=== PATIENT | male | born 1990 | race Caucasian/White ===

== ENCOUNTER 2017-05-03 09:55 | Emergency (ER) | payer OTHER ==
[~2017-05-03] VITALS: Ht 170.2 cm; Wt 67.1 kg
[2017-05-03 10:05] VITALS: TEMP 36.8; O2SAT 100; Ht 170.2 cm; Wt 67.1 kg
[2017-05-03] MEDS ORDERED: SODIUM CHLORIDE 0.9% 1000ML 2,000 ML IV STA (10:09)
[2017-05-03] MEDS ORDERED: DiphenhydrAMINE HCL 50 MG/ML VIAL IV STA (10:09)
[2017-05-03 10:33] LABS: BASO % 0.2 %; BASO ABS # 0.02 K/uL (0-0.2); COMPLETE YES; EOS % 0.7 %; HEMATOCRIT 50.1 % (42-52); IG% 0.3 %; LYMPH % 16.7 %; LYMPH ABS # 1.93 K/uL (1.2-3.4); MEAN CELL VOLUME 88.8 fL (80-100); MEAN CORPUSCULAR HEMOGLOBIN 31.6 pg (25-34); MEAN CORPUSCULAR HGB CONC 35.5 g/dl (32-36); MEAN PLATELET VOLUME 9.3 fL (7.4-10.4); MONO % 6.3 %; NEUT % 75.8 %; PLATELET COUNT 349 K/uL (130-400); RED BLOOD COUNT 5.64 M/uL (4.7-6.1); WHITE BLOOD COUNT 11.57 K/uL (4.8-10.8)
[2017-05-03 10:49] LABS: ALT/SGPT 21 U/L (12-78); AST/SGOT 17 U/L (15-37); BLOOD UREA NITROGEN 16 mg/dl (7-18); CALCIUM 9.2 mg/dl (8.5-10.1); CARBON DIOXIDE 24 mmol/L (21-32); CHLORIDE 102 mmol/L (98-107); GLUCOSE 142 mg/dl (70-99); POTASSIUM 3.9 mmol/L (3.5-5.1); SODIUM 134 mmol/L (136-145)
[2017-05-03 10:53] LABS: ALKALINE PHOSPHATASE 112 U/L (45-117)
[2017-05-03] MEDS ORDERED: ONDANSETRON INJ 2 MG/ML 2 ML VIAL IV STA (11:10)
[2017-05-03] MEDS ORDERED: DULO60CA44 PO (11:16)
[2017-05-03] MEDS ORDERED: GABA-113 PO (11:16)
[2017-05-03] MEDS ORDERED: BUSP15TA70 PO (11:16)
[2017-05-03] MEDS ORDERED: LORAZEPAM 2 MG/ML 1 ML VIAL IV STA (11:57)
[2017-05-03] MEDS ORDERED: OPTIRAY 320 IV PRN (12:00)
[2017-05-03] MEDS ORDERED: PROMETHAZINE HCL INJ 25 MG in SODIUM CHLORIDE 0.9% 50ML 50 ML IV STA (12:35)
--- NOTE | 2017-05-03 12:35 | DIAGNOSTIC IMAGING REPORT ---
CT SCAN OF THE ABDOMEN AND PELVIS WITH IV CONTRAST CLINICAL HISTORY: Syncope. Nausea. Generalized abdominal pain. COMPARISON STUDY: No priors. TECHNIQUE: Following the IV administration of 118 cc of Optiray 320, CT scan of the abdomen and pelvis is performed from the lung bases to the proximal femora. Images are reviewed in the axial, sagittal, and coronal planes. IV contrast was administered without complication. The examination is degraded by motion artifact. Automated dose control exposure was utilized. A dose lowering technique was utilized adhering to the principles of ALARA. CT DOSE: 287.98 mGy.cm FINDINGS: Lung bases: The heart is normal in size and without pericardial effusion. The lung bases are clear. Liver: The contrast-enhanced liver is normal in size, contour, and attenuation. There is no intrahepatic biliary ductal dilatation. The hepatic veins and portal veins are patent. Hepatic periportal edema is noted. Gallbladder: Unremarkable. Spleen: Normal in size and attenuation. Pancreas: Unremarkable. Adrenal glands: Unremarkable. Kidneys: The contrast enhanced kidneys are normal in size and without hydronephrosis. The kidneys enhance symmetrically. There is a retroaortic left renal vein. Abdominal vasculature: The abdominal aorta is normal in course and caliber. Bowel: The small bowel and colon are normal in course and caliber. The appendix is not clearly visualized. Peritoneum: There is no intraperitoneal free air or abdominal ascites. Lymphadenopathy: None. Pelvic viscera: The bladder, prostate, and seminal vesicles are normal as visualized. Skeletal structures: No lytic or blastic lesions are seen. IMPRESSION: 1. There are no acute infectious or inflammatory findings in the abdomen or pelvis noting a significantly motion compromised examination. 2. Hepatic periportal edema is identified and likely related to hydration status. Electronically signed by: Colin Bernardo M.D. 05/03/2017 12:34 PM Dictated Date/Time: 05/03/2017 12:28 PM
[2017-05-03] MEDS ORDERED: SODIUM CHLORIDE 0.9% 1000ML 1,000 ML IV STA (12:36)
--- NOTE | 2017-05-03 14:28 | EMERGENCY ROOM VISIT NOTE ---
History Report prepared by Yuko: Nikki Pearce Under the Supervision of: Dr. Tez Mehta M.D. First contact with patient: 10:02 Chief Complaint: DIZZY Stated Complaint: DIZZY/NAUSEA/SWEATING History of Present Illness The patient is a 26 year old male who presents to the Emergency Room with complaints of persistent vomiting starting this morning. He presents to the ED by EMS. The patient believes that he might have overexerted himself over the last couple of days and become dehydrated. The patient has been doing yard work outside in the sun over the past couple of days. He has overworked himself in the past before. This morning he started having nausea and vomiting. He then started having abdominal pain. The pain is all throughout his abdomen. He also reports dizziness and diaphoresis. He denies any LOC, headache, or neck pain. He admits to marijuana last night. He denies any alcohol use. He denies having history of stomach problems or any other medical problems. Source of History: patient Onset: this morning Position: other (global) Quality: other (vomiting) Timing: other (persistent) Associated Symptoms: + diaphoresis, + nausea, + abdominal pain, No LOC, No headache, No neck pain Note: Pt reports dizziness. Review of Systems See HPI for pertinent positives & negatives. A total of 10 systems reviewed and were otherwise negative. Past Medical & Surgical Medical Problems: (1) No chronic problems Family History No pertinent family history stated. Social History Drug Use: marijuana Marital Status: Current/Historical Medications Scheduled Buspirone Hcl (Buspar), 1 TAB PO QID Duloxetine Hcl (Cymbalta), 60 MG PO DAILY Gabapentin (Neurontin), 300 MG PO QID Allergies Coded Allergies: No Known Allergies (Unverified , 05/03/17) Physical Exam Vital Signs Date Time Temp Pulse Resp B/P (MAP) Pulse Ox O2 Delivery O2 Flow Rate FiO2 05/03/17 14:47 76 16 133/65 95 05/03/17 13:20 63 16 133/84 96 Room Air 05/03/17 13:19 73 05/03/17 11:27 52 16 139/91 100 Room Air 05/03/17 10:05 100 Room Air 05/03/17 10:05 50 05/03/17 10:05 36.8 53 24 137/95 100 Room Air Physical Exam GENERAL: Patient is uncomfortable appearing and in moderate distress, diaphoretic. HEENT: No acute trauma, normocephalic atraumatic, mucous membranes moist, no nasal congestion, no scleral icterus. NECK: No stridor, no adenopathy, no meningismus, trachea is midline. LUNGS: No dyspnea. Clear to auscultation and equal bilaterally. No wheeze, no rhonchi. HEART: Bradycardic rate and regular rhythm. No murmurs, rubs, gallops appreciated. ABDOMEN: Soft, nontender, bowel sounds positive, no masses appreciated, no peritonitis. BACK: No midline tenderness, no CVA tenderness EXTREMITIES: Normal motion all extremities, no cyanosis, no edema. NEUROLOGIC: Alert and oriented, no acute motor or sensory deficits, no focal weakness, cranial nerves grossly intact. SKIN: No rash, no jaundice, diaphoretic. Medical Decision & Procedures ER Provider Diagnostic Interpretation: Radiology results and stated below per my review and radiologist interpretation: CT SCAN OF THE ABDOMEN AND PELVIS WITH IV CONTRAST CLINICAL HISTORY: Syncope. Nausea. Generalized abdominal pain. COMPARISON STUDY: No priors. TECHNIQUE: Following the IV administration of 118 cc of Optiray 320, CT scan of the abdomen and pelvis is performed from the lung bases to the proximal femora. Images are reviewed in the axial, sagittal, and coronal planes. IV contrast was administered without complication. The examination is degraded by motion artifact. Automated dose control exposure was utilized. A dose lowering technique was utilized adhering to the principles of ALARA. CT DOSE: 287.98 mGy.cm FINDINGS: Lung bases: The heart is normal in size and without pericardial effusion. The lung bases are clear. Liver: The contrast-enhanced liver is normal in size, contour, and attenuation. There is no intrahepatic biliary ductal dilatation. The hepatic veins and portal veins are patent. Hepatic periportal edema is noted. Gallbladder: Unremarkable. Spleen: Normal in size and attenuation. Pancreas: Unremarkable. Adrenal glands: Unremarkable. Kidneys: The contrast enhanced kidneys are normal in size and without hydronephrosis. The kidneys enhance symmetrically. There is a retroaortic left renal vein. Abdominal vasculature: The abdominal aorta is normal in course and caliber. Bowel: The small bowel and colon are normal in course and caliber. The appendix is not clearly visualized. Peritoneum: There is no intraperitoneal free air or abdominal ascites. Lymphadenopathy: None. Pelvic viscera: The bladder, prostate, and seminal vesicles are normal as visualized. Skeletal structures: No lytic or blastic lesions are seen. IMPRESSION: 1. There are no acute infectious or inflammatory findings in the abdomen or pelvis noting a significantly motion compromised examination. 2. Hepatic periportal edema is identified and likely related to hydration status. Electronically signed by: Colin Bernardo M.D. 05/03/2017 12:34 PM Dictated Date/Time: 05/03/2017 12:28 PM Laboratory Results 05/03/17 10:20 Red Blood Count 5.64, Mean Corpuscular Volume 88.8, Mean Corpuscular Hemoglobin 31.6, Mean Corpuscular Hemoglobin Concent 35.5, Mean Platelet Volume 9.3, Neutrophils (%) (Auto) 75.8, Lymphocytes (%) (Auto) 16.7, Monocytes (%) (Auto) 6.3, Eosinophils (%) (Auto) 0.7, Basophils (%) (Auto) 0.2, Neutrophils # (Auto) 8.78, Lymphocytes # (Auto) 1.93, Monocytes # (Auto) 0.73, Eosinophils # (Auto) 0.08, Basophils # (Auto) 0.02 05/03/17 10:20 Test 05/03/17 10:20 05/03/17 13:50 White Blood Count 11.57 K/uL (4.8-10.8) Red Blood Count 5.64 M/uL (4.7-6.1) Hemoglobin 17.8 g/dL (14.0-18.0) Hematocrit 50.1 % (42-52) Mean Corpuscular Volume 88.8 fL (80-100) Mean Corpuscular Hemoglobin 31.6 pg (25-34) Mean Corpuscular Hemoglobin Concent 35.5 g/dl (32-36) Platelet Count 349 K/uL (130-400) Mean Platelet Volume 9.3 fL (7.4-10.4) Neutrophils (%) (Auto) 75.8 % Lymphocytes (%) (Auto) 16.7 % Monocytes (%) (Auto) 6.3 % Eosinophils (%) (Auto) 0.7 % Basophils (%) (Auto) 0.2 % Neutrophils # (Auto) 8.78 K/uL (1.4-6.5) Lymphocytes # (Auto) 1.93 K/uL (1.2-3.4) Monocytes # (Auto) 0.73 K/uL (0.11-0.59) Eosinophils # (Auto) 0.08 K/uL (0-0.5) Basophils # (Auto) 0.02 K/uL (0-0.2) RDW Standard Deviation 42.3 fL (36.4-46.3) RDW Coefficient of Variation 13.0 % (11.5-14.5) Immature Granulocyte % (Auto) 0.3 % Immature Granulocyte # (Auto) 0.03 K/uL (0.00-0.02) Anion Gap 8.0 mmol/L (3-11) Est Creatinine Clear Calc Drug Dose 79.1 ml/min Estimated GFR () 86.1 Estimated GFR (Non- 74.3 BUN/Creatinine Ratio 12.0 (10-20) Calcium Level 9.2 mg/dl (8.5-10.1) Total Bilirubin 1.0 mg/dl (0.2-1) Direct Bilirubin 0.2 mg/dl (0-0.2) Aspartate Amino Transf (AST/SGOT) 17 U/L (15-37) Alanine Aminotransferase (ALT/SGPT) 21 U/L (12-78) Alkaline Phosphatase 112 U/L (45-117) Total Creatine Kinase 171 U/L (39-308) Troponin I < 0.015 ng/ml (0-0.045) Total Protein 8.2 gm/dl (6.4-8.2) Albumin 4.7 gm/dl (3.4-5.0) Lipase 127 U/L (73-393) Bedside Lactic Acid Venous 0.60 mmol/L (0.90-1.70) Laboratory results as reviewed by me. Medications Administered Medications (Trade) Dose Ordered Sig/Kathe Route Start Time Stop Time Status Last Admin Dose Admin Sodium Chloride 2,000 ml @ 999 mls/hr Q2H1M STAT IV 05/03/17 10:09 05/03/17 12:09 DC 05/03/17 10:15 999 MLS/HR Diphenhydramine HCl (Benadryl Inj) 50 mg NOW STAT IV 05/03/17 10:09 05/03/17 10:11 DC 05/03/17 10:30 50 MG Ondansetron HCl (Zofran Inj) 4 mg NOW STAT IV 05/03/17 11:10 05/03/17 11:11 DC 05/03/17 11:10 4 MG Lorazepam (Ativan Inj) 1 mg NOW STAT IV 05/03/17 11:57 05/03/17 11:58 DC 05/03/17 12:08 1 MG Promethazine HCl 25 mg/Sodium Chloride 51 ml @ 204 mls/hr NOW STAT IV 05/03/17 12:35 05/03/17 12:49 DC 05/03/17 12:55 204 MLS/HR Sodium Chloride 1,000 ml @ 999 mls/hr Q1H1M STAT IV 05/03/17 12:36 05/03/17 13:36 DC 05/03/17 12:40 999 MLS/HR Promethazine HCl (Phenergan 25MG Home Pack) 1 homepack UD ONCE PO 05/03/17 14:30 05/03/17 14:31 DC 05/03/17 14:50 1 HOMEPACK ECG Indication: other (dizziness) Rate (beats per minute): 58 Rhythm: sinus bradycardia Findings: no acute ischemic change, no ectopy ED Course 1004: The patient was evaluated in room B9. A complete history and physical exam was performed. 1009: Benadryl Inj 50 mg IV, NSS 2000 ml @ 999 mls/hr IV. 1109: I reevaluated the patient. He is feeling minimally better. He is actively vomiting. He has not received IV fluids secondary to elbow being bent. 1110: Zofran Inj 4 mg IV. 1155: The patient admits to methamphetamine use 2 days ago. He continues to have nausea and vomiting after fluids. 1157: Lorazepam 1 mg IV. 1235: Promethazine HCl 25 mg/Sodium Chloride 51 ml @ 204 mls/hr IV. 1234: I reevaluated the patient. He is feeling better and has no further vomiting. He has mild nausea. 1236: NSS 1000 ml @ 999 mls/hr IV. 1248: I reevaluated the patient. He is now getting fluids. 1424: I reevaluated the patient. He feels much better. Mom and dad are at bedside. I discussed the dangers of recreational drug use and heat exhaustion. Parents feel comfortable taking him home. I reviewed the sedative effects of the medications he was given and that he may be sleepy for the next several hours. He is now urinating without problems. 1430: Promethazine HCl 1 homepack PO. Medical Decision Differential: Sepsis, Infectious (UTI/Pneumonia/Meningitis/etc), Metabolic/ Electrolyte Abnormality, Cardiac, Hepatic, Endocrine, Toxicologic, Neurologic, amongst other pathologies entertained. 26 yr old male methamphetamine user who is severely dehydrated post exertion in heat. Significant abdominal pain in setting of elevated Lactic Acid and with history of meth use (increased risk ischemia/ulcer) I felt that CT abdominal pelv necessary. This is negative. Took quite some time for nausea, pain to resolve and after 3 L fluids Lactic acid has cleared. Stable, feeling better. Family at bedside. Comfortable with going home. He is not longer in distress, vitals are stable and vitals look good. He is breathign comfortably and I feel discharge reasonable. Reviewed importance of keeping well hydrated, rest and avoiding exertion. Customary discussion regarding outpatient monitoring/rted reviewed. Medication Reconcilliation Current Medication List: was personally reviewed by me Blood Pressure Screening Patient's blood pressure: Elevated blood pressure Blood pressure disposition: Elevated BP felt to be situational Impression Primary Impression: Dehydration Additional Impression: Heat exhaustion Scribe Attestation The scribe's documentation has been prepared under my direction and personally reviewed by me in its entirety. I confirm that the note above accurately reflects all work, treatment, procedures, and medical decision making performed by me. Departure Information Dispostion Home / Self-Care Patient Instructions ED Exhaustion Heat, My [facility] Health Problem Qualifiers
[2017-05-03] MEDS ORDERED: PHENERGAN 25MG HOMEPACK PO ONE (14:30)
[2017-05-03 14:47] VITALS: BP 133/65; PULSE 76; O2SAT 95
== END 2017-05-03 15:00 | disposition home or self-care (01) ==
LOC: EDBD 09:55 → C.EDB 09:57
DX: E86.0 Dehydration (principal); T67.5XXA Heat exhaustion, unspecified, initial encounter; X30.XXXA Exposure to excessive natural heat, initial encounter; Z79.899 Other long term (current) drug therapy